=== PATIENT | male | born 2000 | race American Indian/Alaskan Native ===

== ENCOUNTER 2021-03-13 23:38 | Emergency (ER) | payer OTHER ==
--- NOTE | 2021-03-14 01:24 | EDM.PDOC ---
ED HPI GENERAL MEDICAL PROBLEM - General Chief Complaint: ENT Problem Stated Complaint: PAIN IN LT EAR, EYE, HEADACHE Time Seen by Provider: 03/14/21 01:13 Source of Information: Reports: Patient, RN, RN Notes Reviewed History Limitations: Reports: No Limitations - History of Present Illness INITIAL COMMENTS - FREE TEXT/NARRATIVE: Júnior is a 20 y/o male who presents to the ED via personal vehicle with complaints of dental pain to tooth #16. The patient states his pain has been ongoing for approximately one month, but has progressively worsened over the past four days. He notes a history of a cap to this tooth that fell off nine months ago. He notes pain to the tooth that radiates into his left cheek and left ear. He denies fever, shaking chills, vision changes, throat tightness, sore throat, or difficulty breathing. The patient has been taking multiple doses of ibuprofen with moderate alleviation in pain. - Related Data Allergies Allergy/AdvReac Type Severity Reaction Status Date / Time No Known Allergies Allergy Verified 03/14/21 01:09 Home Meds: Home Meds . [No Known Home Meds] 03/14/21 [History] ED ROS ENT - Review of Systems Review Of Systems: Comprehensive ROS is negative, except as noted in HPI. ED EXAM, ENT - Physical Exam Exam: See Below Exam Limited By: No Limitations General Appearance: Alert, No Apparent Distress Eye Exam: Bilateral Eye: EOMI, Normal Inspection, PERRL (3mm) Ears: Normal External Exam, Normal Canal, Hearing Grossly Normal, Normal TMs. No: TM Bulging, TM Dullness, TM Erythema, TM Blood, TM Fluid, TM Perforation Nose: Normal Inspection, Normal Mucousa, No Blood Mouth/Throat: Dental Pain (Tooth #16). No: Dental Trauma, Hoarse Voice, Muffled Voice, Pharyngeal Erythema, Throat Pain, Throat Swelling, Tongue Swelling, Tonsillar Erythema, Tonsillar Exudates, Tonsillar Swelling Head: Atraumatic, Normocephalic, Facial Swelling (Trace to left cheek), Facial Tenderness (To left cheek). No: Facial Abrasions, Facial Ecchymosis, Facial L acerations Neck: Normal Inspection, Supple, Non-Tender, Full Range of Motion. No: Lymphadenopathy (L), Lymphadenopathy (R) Respiratory/Chest: No Respiratory Distress, Lungs Clear, Chest Non-Tender Cardiovascular: Normal Peripheral Pulses, Regular Rate, Rhythm, No Gallop, No Murmur, No Rub GI/Abdominal: Normal Bowel Sounds, Soft (Male) Exam: Deferred Rectal (Males) Exam: Deferred Neurological: Alert, Oriented, CN II-XII Intact, Normal Cognition, Normal Gait, No Motor/Sensory Deficits Psychiatric: Normal Affect, Normal Mood Skin: Warm, Dry, Intact, Normal Color, No Rash. No: Cyanosis, Jaundice, Mottled, Pallor Course - Vital Signs Last Recorded V/S: Last Vital Signs Temp 98 F 03/14/21 01:10 Pulse 65 03/14/21 01:10 Resp 16 03/14/21 01:10 BP 148/76 H 03/14/21 01:10 Pulse Ox 97 03/14/21 01:10 - Orders/Labs/Meds Meds: Medications Discontinued Medications Generic Name Dose Route Start Last Admin Trade Name Freq PRN Reason Stop Dose Admin Clindamycin HCl 300 mg 03/14/21 01:28 03/14/21 01:33 Clindamycin Hcl 150 Mg Cap PO 03/14/21 01:29 300 mg ONETIME ONE Administration - Re-Assessments/Exams Free Text/Narrative Re-Assessment/Exam: 03/14/21 Findings of examination reviewed with patient. Will treat dental infection with clindamycin. Supportive cares for dental pain discussed. Patient instructed to follow up with dentist regarding today's visit. Red flag signs and symptoms which would warrant reevaluation reviewed. Patient verbalized understanding and agreement with the plan of care. Departure - Departure Time of Disposition: 01:26 Disposition: Home, Self-Care 01 Condition: Good Clinical Impression: Dental infection, Dental caries - Discharge Information *PRESCRIPTION DRUG MONITORING PROGRAM REVIEWED*: Not Applicable *COPY OF PRESCRIPTION DRUG MONITORING REPORT IN PATIENT TERRI: Not Applicable Instructions: Dental Caries, Adult Forms: ED Department Discharge Additional Instructions: Rx: clindamycin 1.) Take all of your antibiotic until gone, even as symptoms improve. 2.) Follow up with your primary care dentist regarding dental infection. 3.) You may take ibuprofen (Motrin/Advil) 400mg every six hours, as pain and swelling persist. You may also take acetaminophen (Tylenol) 650mg every six hours, as pain persists. You may stagger these medications so you are taking a dose every three hours. 4.) You may apply ice to the affected areas, as pain persists; 20 minutes, every hour. Sepsis Event Note (ED) - Focused Exam Vital Signs: Vital Signs Temp Pulse Resp BP Pulse Ox 03/14/21 01:10 98 F 65 16 148/76 H 97
[2021-03-14] MEDS ORDERED: Clindamycin HCl 150 MG Cap PO ONE (01:28)
== END 2021-03-14 01:40 | disposition home or self-care (01) ==
LOC: DL.ED 23:38
DX: K04.7 Periapical abscess without sinus (principal); K02.9 Dental caries, unspecified
CPT/HCPCS: 99282; A9270

== ENCOUNTER 2021-09-12 14:11 | Emergency (ER) | payer OTHER ==
[2021-09-12] MEDS ORDERED: Lidocaine 1% 30 ML SDV INJECT ONE (14:31)
[2021-09-12] MEDS ORDERED: Bacitracin Oint 1 GM U/D Packet TOP ONE (14:50)
== END 2021-09-12 16:23 | disposition home or self-care (01) ==
LOC: DL.ED 14:11
DX: S61.210A Laceration without foreign body of right index finger without damage to nail, initial encounter (principal); Z72.0 Tobacco use; W26.8XXA Contact with other sharp object(s), not elsewhere classified, initial encounter; Y99.0 Civilian activity done for income or pay
CPT/HCPCS: 12001; 99282; 99282-25

== ENCOUNTER 2022-04-07 18:32 | Emergency (ER) | payer BC, MEDICAID ==
[2022-04-07] MEDS: Lidocaine 1% 10 ML MDV INJECT ONE (19:45)
[2022-04-07] MEDS: Diphtheria,Pertussis(Acell),Tetanus Vaccine 0.5 ML Syringe IM ONE (19:51)
[2022-04-07] MEDS: Bacitracin Oint 1 GM U/D Packet TOP ONE (19:52)
== END 2022-04-07 20:37 | disposition home or self-care (01) ==
LOC: DL.ED 18:32
DX: S61.411A Laceration without foreign body of right hand, initial encounter (principal); Z23 Encounter for immunization; W26.0XXA Contact with knife, initial encounter
CPT/HCPCS: 12002; 90471; 90715; 99282-25